=== PATIENT | male | born 1945 | race Caucasian/White ===

== ENCOUNTER 2020-08-28 09:38 | Day surgery (SDC) | payer MEDICARE, OTHER ==
[2020-08-28] VITALS (7 sets, daily range): BP systolic 121–139; BP diastolic 69–96
[~2020-08-28] VITALS: Ht 175.3 cm; Wt 77.9 kg
[~2020-08-28 09:38] MED LIST: ASPI-10 PO; CHOL10006 PO; MULT-1179 PO; cefazolin/dext.iso 2gm/100ml 100 ML IV ONE; famotidine 20mg tablet PO ONE; ringers solution, lacted 1,000 ML IV SCH
[2020-08-28] MEDS ORDERED: BUPIVAcaine/PF 2.5mg/ml (0.25%) 10ml vial ONE (10:18)
[2020-08-28] MEDS ORDERED: LIDOcaine 1% 30ml preserv. free vial ONE (10:18)
[2020-08-28] MEDS ORDERED: fentaNYL/PF 50MCG/1 ML 2ML syringe ONE (13:17)
[2020-08-28] MEDS ORDERED: midazolam 1 mg/ML 2ml injection ONE (13:17)
[2020-08-28] MEDS ORDERED: rocuronium 10mg/ml inj IV ONE (13:24)
[2020-08-28] MEDS ORDERED: propofol inj 20 ML IV ONE (13:24)
[2020-08-28] MEDS ORDERED: ondansetron/PF 4mg/2ml inj ONE (13:24)
[2020-08-28] MEDS ORDERED: LIDOcaine 2% (20mg/ml) 5ml vial ONE (13:24)
[2020-08-28] MEDS ORDERED: ePHEDrine 50MG/ML INJ. ONE (13:26)
[2020-08-28] MEDS ORDERED: morphine 4 MG/ML inj SYRINge IV PRN (13:50)
[2020-08-28] MEDS ORDERED: hydrALAZINE 20mg/ml inj. IV PRN (13:50)
[2020-08-28] MEDS ORDERED: morphine 2 MG/ML inj. syringe IV PRN (13:50)
[2020-08-28] MEDS ORDERED: labetalol 20mg/4ml (5mg/ml) syringe IV PRN (13:50)
[2020-08-28] MEDS ORDERED: ondansetron/PF 4mg/2ml inj IV PRN (13:50)
[2020-08-28] MEDS ORDERED: ringers solution, lacted 1,000 ML IV SCH (13:50)
[2020-08-28] MEDS ORDERED: fentaNYL/PF 50MCG/1 ML 2ML syringe IV PRN ×2 (13:50)
[2020-08-28] MEDS ORDERED: HYDROcodone/acetaminophen 5mg/325mg tablet PO PRN (14:20)
--- NOTE | 2020-08-28 14:20 | NUR ---
Received from OR via , accompanied by Anesthesiologist DR MEJIAS and report given by Anesthesiolgist. AWAKENS TO VOICE. VITALS STABLE. DRESSINGS DI. FREDO EPAIN. ABD SOFT.
--- NOTE | 2020-08-28 15:50 | NUR ---
AWAKE AND ORIENTED. VITALS STABLE. DRESSINGS DI. STATES PAIN IMPROVING. HOME WITH HIS AT THIS TIME.
== END 2020-08-28 15:50 | disposition home or self-care (01) ==
LOC: PAS 09:38
PROVIDERS: ATTEND Surgery
DX: K40.20 Bilateral inguinal hernia, without obstruction or gangrene, not specified as recurrent (principal); M19.90 Unspecified osteoarthritis, unspecified site; Z85.46 Personal history of malignant neoplasm of prostate; Z96.641 Presence of right artificial hip joint; Z98.890 Other specified postprocedural states; Z79.82 Long term (current) use of aspirin; Z79.899 Other long term (current) drug therapy; Z88.0 Allergy status to penicillin; Z88.1 Allergy status to other antibiotic agents; Z72.89 Other problems related to lifestyle; Z87.891 Personal history of nicotine dependence
CPT/HCPCS: 49650; 82948; 93005; C1781; J2001; J2250; J2405; J2704; J3010; J3490; A4215; A4618; J7120

== ENCOUNTER 2023-05-14 11:34 | Inpatient (IN) | payer MEDICARE, OTHER ==
[~2023-05-14] VITALS: Ht 177.8 cm; Wt 77.3 kg
[~2023-05-14 11:34] MED LIST changes: +ASCO500C17 PO; -ASPI-10 PO; +ASPI-845 PO; +ATOR10TA PO; +CARV-50 PO; +LISI10TA27 PO; +NITR0.4T51 SL; +OMEG-133 PO; -cefazolin/dext.iso 2gm/100ml 100 ML IV ONE; -famotidine 20mg tablet PO ONE; -ringers solution, lacted 1,000 ML IV SCH
[2023-05-14 11:54] LABS: BASOPHILS # (AUTO) 0.1 X10'3 (0-0.2); BASOPHILS % (AUTO) 1.9 % (0-1); EOSINOPHILS # (AUTO) 0.4 X10'3 (0-0.9); EOSINOPHILS % (AUTO) 5.9 % (0-6); HEMATOCRIT 27.4 % (42.0-52.0); HEMOGLOBIN 9.2 g/dl (14.0-17.9); LYMPHOCYTES # (AUTO) 0.8 X10'3 (1.1-4.8); LYMPHOCYTES % (AUTO) 11.5 % (21-51); MEAN CORPUSCULAR HEMOGLOBIN 31.7 PG (27.0-31.0); MEAN CORPUSCULAR HGB CONC 33.8 g/dL (33.0-36.5); MEAN CORPUSCULAR VOLUME 93.9 FL (78-98); MONOCYTES # (AUTO) 0.9 X10'3 (0-0.9); MONOCYTES % (AUTO) 13.8 % (2-12); NEUTROPHILS # (AUTO) 4.5 X10'3 (1.8-7.7); NEUTROPHILS % (AUTO) 66.9 % (42-75); PLATELET COUNT 211 X10'3 (140-440); RED BLOOD COUNT 2.91 X10'6 (4.70-6.10); RED CELL DISTRIBUTION WIDTH 13.9 % (11.5-14.5); WHITE BLOOD COUNT 6.7 X10'3 (4.5-11.0)
[2023-05-14 12:30] LABS: ALBUMIN 2.8 G/DL (3.4-5.0); ANION GAP 8 (8-16); BLOOD UREA NITROGEN 18 MG/DL (7-18); BUN/CREATININE RATIO 17.5 (10.0-20.0); CALCIUM 8.5 MG/DL (8.5-10.1); CHLORIDE 97 MMOL/L (99-107); CREATININE 1.03 MG/DL (0.60-1.10); GLUCOSE 92 MG/DL (70-104); POTASSIUM 5.1 MMOL/L (3.5-5.1); SODIUM 131 MMOL/L (135-145); TOTAL CARBON DIOXIDE 26.2 MMOL/L (24-32); eCRCL 62 ML/MIN; eGFR 70 ML/MIN
[2023-05-14 14:27] LABS: PRO BRAIN NATRIURETIC PEPTIDE 4671 PG/ML (0-450)
[2023-05-14] MEDS ORDERED: iohexol 350MG/ML 100ml bottle IV ONE (16:46)
[2023-05-14] MEDS: furosemide 10 MG/1 ML 10ml inj IV ONE (20:03)
[2023-05-15] MEDS ORDERED: potassium Cl 20 mEq SR tablet PO PRN ×2 (02:10)
[2023-05-15] MEDS ORDERED: ondansetron/PF 4mg/2ml inj IV PRN (02:10)
[2023-05-15] MEDS ORDERED: magnesium hydroxide 30ml (MOM) UD suspension PO PRN (02:10)
[2023-05-15] MEDS ORDERED: potassium Cl 40MEQ/1/2NS 520ml 520 ML IV PRN (02:10)
[2023-05-15] MEDS ORDERED: magnesium 2GM in 50ml NS 50 ML IV PRN (02:10)
[2023-05-15] MEDS ORDERED: magnesium Cl slow-release 64mg tablet PO PRN (02:10)
[2023-05-15] MEDS ORDERED: magnesium 4gm in 100ml NS 100 ML IV PRN (02:10)
[2023-05-15] MEDS ORDERED: mag hydrox/Alum hydrox/simeth 30ml oral suspension PO PRN (02:10)
[2023-05-15] MEDS ORDERED: acetaminophen 325mg tablet PO PRN (02:10)
[2023-05-15] MEDS ORDERED: oxyCODONE SR 10mg (sust. release) tab PO PRN (02:15)
[2023-05-15] MEDS: temazepam 15mg capsule PO ONE (02:21)
[2023-05-15] MEDS: normal saline 1000ml 1,000 ML IV SCH (02:22)
[2023-05-15] MEDS: lisinopril 10 MG tablet PO SCH (08:00)
[2023-05-15] MEDS: furosemide 10 MG/1 ML 10ml inj IV SCH (08:00)
[2023-05-15] MEDS: K and/or MAG REPLACEMENT MC SCH (08:00)
[2023-05-15] MEDS: metoprolol succinate 25mg (24-HOUR) SR. Tablet PO SCH (09:13)
[2023-05-15 09:29] LABS: BASOPHILS # (AUTO) 0.1 X10'3 (0-0.2); BASOPHILS % (AUTO) 0.9 % (0-1); EOSINOPHILS # (AUTO) 0.4 X10'3 (0-0.9); EOSINOPHILS % (AUTO) 5.9 % (0-6); HEMATOCRIT 25.8 % (42.0-52.0); HEMOGLOBIN 8.9 g/dl (14.0-17.9); LYMPHOCYTES # (AUTO) 0.6 X10'3 (1.1-4.8); LYMPHOCYTES % (AUTO) 9.6 % (21-51); MEAN CORPUSCULAR HEMOGLOBIN 32.2 PG (27.0-31.0); MEAN CORPUSCULAR HGB CONC 34.4 g/dL (33.0-36.5); MEAN CORPUSCULAR VOLUME 93.6 FL (78-98); MEAN PLATELET VOLUME 7.9 FL (7.4-10.4); MONOCYTES # (AUTO) 0.7 X10'3 (0-0.9); MONOCYTES % (AUTO) 10.6 % (2-12); NEUTROPHILS # (AUTO) 4.6 X10'3 (1.8-7.7); PLATELET COUNT 205 X10'3 (140-440); RED BLOOD COUNT 2.75 X10'6 (4.70-6.10); RED CELL DISTRIBUTION WIDTH 13.3 % (11.5-14.5); WHITE BLOOD COUNT 6.3 X10'3 (4.5-11.0)
[2023-05-15 09:52] LABS: % IRON SATURATION 28 % (11-46); IRON 65 UG/DL (53-167); TOTAL IRON BINDING CAPACITY 233 UG/DL (259-388)
[2023-05-15 09:56] LABS: ALANINE AMINOTRANSFERASE 21 U/L (12-78); ALBUMIN 2.6 G/DL (3.4-5.0); ALBUMIN/GLOBULIN RATIO 0.8 (1.1-1.5); ALKALINE PHOSPHATASE 96 IU/L (46-116); ANION GAP 8 (8-16); ASPARTATE AMINO TRANSFERASE 29 U/L (10-37); BLOOD UREA NITROGEN 14 MG/DL (7-18); BUN/CREATININE RATIO 17.9 (10.0-20.0); CHLORIDE 98 MMOL/L (99-107); CREATININE 0.78 MG/DL (0.60-1.10); GLUCOSE 86 MG/DL (70-104); MAGNESIUM 1.9 MG/DL (1.5-2.4); POTASSIUM 4.4 MMOL/L (3.5-5.1); SODIUM 130 MMOL/L (135-145); TOTAL CARBON DIOXIDE 24.2 MMOL/L (24-32); TOTAL PROTEIN 5.7 G/DL (6.4-8.2); eCRCL 82 ML/MIN; eGFR > 90 ML/MIN
[2023-05-15] MEDS: aspirin 81mg, enteric-coated 1 TAB TABLET.DR PO SCH (10:26)
[2023-05-15] MEDS: atorvastatin 20mg tablet PO SCH (10:26)
[2023-05-15] MEDS: docusate sod 100mg capsule PO SCH (10:28)
[2023-05-15] MEDS ORDERED: FLO0.4C PO (16:47)
[2023-05-15] MEDS ORDERED: METO50TA16 PO (16:47)
[2023-05-15] MEDS ORDERED: RIVA20TA PO (16:47)
[2023-05-15] MEDS ORDERED: MULT-227 PO (16:47)
[2023-05-15] MEDS ORDERED: ASCO100031 PO (16:47)
[2023-05-15] MEDS ORDERED: probiotic PO (16:47)
[2023-05-15] MEDS ORDERED: ATOR-2 PO (16:47)
[2023-05-15] MEDS ORDERED: NITR0.4T51 SL (16:50)
[2023-05-15] MEDS ORDERED: LISI10TA27 PO (16:50)
[2023-05-15] MEDS: rivaroxaban 10mg tablet PO SCH (17:17)
[2023-05-15] MEDS ORDERED: nitroGLYCERIN 0.4mg SUBLingual tab SL PRN (17:40)
[2023-05-15 18:00] VITALS: BP 103/71; PULSE 97; RESP 16; TEMP 97; O2SAT 95
[2023-05-15] MEDS: tamsulosin 0.4mg capsule PO SCH (19:20)
[2023-05-15] MEDS: metoprolol tartrate 50mg tablet PO SCH (19:21)
[2023-05-15 20:00] VITALS: RESP 16; O2SAT 95
[2023-05-15] MEDS ORDERED: tamsulosin 0.4mg capsule PO SCH (21:00)
[2023-05-15 22:00] VITALS: BP 92/57; PULSE 68; RESP 18; TEMP 97.5; O2SAT 96
[2023-05-16] VITALS (7 sets, daily range): BP systolic 89–110; BP diastolic 57–61; PULSE 73–86; RESP 16; TEMP 97.2–98.8; O2SAT 96–99
[2023-05-16 03:21] LABS: ALANINE AMINOTRANSFERASE 17 U/L (12-78); ALBUMIN 2.4 G/DL (3.4-5.0); ALBUMIN/GLOBULIN RATIO 0.8 (1.1-1.5); ALKALINE PHOSPHATASE 78 IU/L (46-116); ANION GAP 7 (8-16); ASPARTATE AMINO TRANSFERASE 24 U/L (10-37); BILIRUBIN,TOTAL 1.7 MG/DL (0.1-1.0); BLOOD UREA NITROGEN 14 MG/DL (7-18); BUN/CREATININE RATIO 18.7 (10.0-20.0); CALCIUM 8.2 MG/DL (8.5-10.1); CHLORIDE 100 MMOL/L (99-107); CREATININE 0.75 MG/DL (0.60-1.10); GLUCOSE 82 MG/DL (70-104); PHOSPHORUS 4.3 MG/DL (2.3-4.5); POTASSIUM 4.2 MMOL/L (3.5-5.1); SODIUM 132 MMOL/L (135-145); TOTAL CARBON DIOXIDE 24.7 MMOL/L (24-32); TOTAL PROTEIN 5.5 G/DL (6.4-8.2); eCRCL 85 ML/MIN; eGFR > 90 ML/MIN
[2023-05-16 03:25] LABS: BASOPHILS # (AUTO) 0.1 X10'3 (0-0.2); BASOPHILS % (AUTO) 1.2 % (0-1); EOSINOPHILS # (AUTO) 0.5 X10'3 (0-0.9); EOSINOPHILS % (AUTO) 7.5 % (0-6); HEMATOCRIT 24.4 % (42.0-52.0); HEMOGLOBIN 8.4 g/dl (14.0-17.9); LYMPHOCYTES # (AUTO) 0.7 X10'3 (1.1-4.8); LYMPHOCYTES % (AUTO) 12.3 % (21-51); MEAN CORPUSCULAR HGB CONC 34.5 g/dL (33.0-36.5); MEAN PLATELET VOLUME 7.8 FL (7.4-10.4); MONOCYTES # (AUTO) 0.7 X10'3 (0-0.9); MONOCYTES % (AUTO) 11.4 % (2-12); NEUTROPHILS # (AUTO) 4.1 X10'3 (1.8-7.7); NEUTROPHILS % (AUTO) 67.6 % (42-75); PLATELET COUNT 220 X10'3 (140-440); RED BLOOD COUNT 2.62 X10'6 (4.70-6.10); RED CELL DISTRIBUTION WIDTH 13.7 % (11.5-14.5); WHITE BLOOD COUNT 6.1 X10'3 (4.5-11.0)
[2023-05-16] MEDS ORDERED: non-formulary drug (Atorvastatin Calcium 1 TAB) PO SCH (08:00)
[2023-05-16] MEDS: furosemide 20MG tablet PO SCH (08:21)
[2023-05-16] MEDS: lactobacillus rhamnosus 10,000 MMU CELLS/CAPSULE PO SCH (08:21)
[2023-05-16] MEDS: OMEGA-3/DHA/EPA/FISH OIL 1 EACH CAPSULE.DR PO SCH (08:21)
[2023-05-16] MEDS: cholecalciferol (vitamin D3) 1,000 unit (25mcg) tablet PO SCH (08:22)
[2023-05-16] MEDS: ascorbic acid 500mg tablet PO SCH (08:22)
[2023-05-16] MEDS: multivitamins, therapeutics tablet PO SCH (08:22)
[2023-05-16] MEDS: lisinopril 10 MG tablet PO SCH (08:23)
[2023-05-16] MEDS ORDERED: FURO20TA4 PO (11:51)
[2023-05-16] MEDS ORDERED: rivaroxaban 20mg tablet PO SCH (14:00)
== END 2023-05-16 17:05 | disposition home or self-care (01) | DRG 291 ==
LOC: ER 11:34 → ED HOLD 05-15 02:09 → SUR 3N 05-15 17:54
PROVIDERS: ADMIT Student in an Organized Health Care Education/Training Program; ATTEND Family Medicine
PROC: B32T1ZZ Computerized Tomography (CT Scan) of Left Pulmonary Artery using Low Osmolar Contrast (ICD-10-PCS; principal; 2023-05-14)
PROC: B3201ZZ Computerized Tomography (CT Scan) of Thoracic Aorta using Low Osmolar Contrast (ICD-10-PCS; 2023-05-14)
PROC: B32S1ZZ Computerized Tomography (CT Scan) of Right Pulmonary Artery using Low Osmolar Contrast (ICD-10-PCS; 2023-05-14)
DX: I11.0 Hypertensive heart disease with heart failure (principal); I50.23 Acute on chronic systolic (congestive) heart failure; J98.11 Atelectasis; E87.1 Hypo-osmolality and hyponatremia; I48.91 Unspecified atrial fibrillation; D63.8 Anemia in other chronic diseases classified elsewhere; R09.02 Hypoxemia; Z79.01 Long term (current) use of anticoagulants; Z88.1 Allergy status to other antibiotic agents; Z79.82 Long term (current) use of aspirin; Z79.899 Other long term (current) drug therapy; Z88.0 Allergy status to penicillin
CPT/HCPCS: 36415; 36430; 71045; 71275; 80048; 80053; 82948; 83540; 83550; 83735; 83880; 84100; 84484; 85025; 86885; 86900; 86901; 86920; 87081; 93005; 93306; 96374; 99285; A4615; G0378; J1940; J3490; J7030; J7040; P9016; Q9967